=== PATIENT | female | born 1990 | race African-American/Black ===

== ENCOUNTER 2022-10-01 07:55 | Emergency (ER) | payer OTHER, SELFPAY ==
[2022-10-01 08:12] VITALS: BP 118/70; BP 130/80; PULSE 62; PULSE 81; RESP 18; TEMP 36.7; O2SAT 99; BMI 27.3
--- NOTE | 2022-10-01 08:26 | PC.NURSE ---
patient a/ox4 . oniel . heart rate regular at 77 beats per minute .lungs clear . breathing even and unlabored . skin pink warm and dry . patient is guarding left flank . reports waking up yesterday with sharp shooting pain that came and went that has increased and gotten worse since then . abdomen is soft . not tender . positive bowel sounds throughout . No trauma or injury noted to area . Patient ambulated with assistance to bathroom and gave urine sample . patient aware of plan of care .
--- NOTE | 2022-10-01 09:00 | ED_ITS ---
HPI - General Adult General Chief complaint: Abdominal Pain <Christian Day MD - Last Filed: 10/01/22 09:02> Stated complaint: R FLANK PAIN PER EMS <Christian Day MD - Last Filed: 10/01/22 09:02> Time Seen by Provider: 10/01/22 08:37 <Christian Day MD - Last Filed: 10/01/22 09:02> Source: patient <Katey SaucedaPABLITO - Last Filed: 10/01/22 11:57> Mode of arrival: EMS <Katey Molina PABLITO Sauceda - Last Filed: 10/01/22 11:57> Limitations: no limitations <Katey Molina PABLITO Sauceda - Last Filed: 10/01/22 11:57> History of Present Illness HPI narrative: Patient is a 42-year-old female who presents to emergency department for evaluation right wall upper back pain. Symptoms was yesterday. She states that she was attempting to reach forward to pick something up when she realized that she could not due to the pain she was experiencing. Pain has been constant since home, was noted worse with movement such as bending forward or movement of the arm. Has not tried any medications at home to help with this. Denies fevers, chills, dizziness weakness, chest pain no palpitations no shortness of breath, difficulty breathing, nausea, vomiting, abdominal pain, dysuria, urinary frequency, hematuria. Denies any past history of DVT/PE, personal she cancer use of oral contraceptives, smoking history <Katey Lernerjaun Sauceda CNP - Last Filed: 10/01/22 11:57> Related Data Home medications: Previous Rx's Medication Instructions Recorded ibuprofen 600 mg tablet 600 mg PO Q8H PRN fever or pain 10/01/22 #30 tabs <Christian Day MD - Last Filed: 10/01/22 09:02> Allergies/adverse reactions: Allergies Allergy/AdvReac Type Severity Reaction Status Date / Time No Known Allergies Allergy Verified 10/01/22 08:48 <Christian Day MD - Last Filed: 10/01/22 09:02> Review of Systems Review of Systems: Constitutional: No weight loss, fever, chills, weakness or fatigue. Skin: No rash or itching. Cardiovascular: No chest pain No palpitations or pedal edema. Respiratory: No shortness of breath, cough or sputum production. Gastrointestinal: No nausea, vomiting or diarrhea. No abdominal pain Genitourinary: No burning micturition. No urinary frequency or incontinence. Musculoskeletal: Back pain is noted in HPI Psychiatric: No depression or anxiety. <Katey Sauceda CNP - Last Filed: 10/01/22 11:57> Yes all other systems are reviewed and are negative <Katey Sauceda CNP - Last Filed: 10/01/22 11:57> [facility] Past Medical History Attestation statement: The following information was validated with the patient. <Katey Sauceda CNP - Last Filed: 10/01/22 11:57> Source: old records reviewed <Katey Sauceda CNP - Last Filed: 10/01/22 11:57> Social History Social History: Social History Alcohol intake: never Advance Directives: No Advance Directives Information Provided: No <Christian Day MD - Last Filed: 10/01/22 09:02> Physical Exam ED Vital Signs: Vital Signs - 24 hr 10/01/22 08:12 Temperature 98.1 F Pulse Rate 62 Respiratory Rate 18 Blood Pressure 118/70 Pulse Oximetry 99 Oxygen Delivery Method Room Air BMI result Body Mass Index 27.3 <Christian Day MD - Last Filed: 10/01/22 09:02> Vital Signs - 24 hr 10/01/22 08:12 Temperature 98.1 F Pulse Rate 62 Respiratory Rate 18 Blood Pressure 118/70 Pulse Oximetry 99 Oxygen Delivery Method Room Air BMI result Body Mass Index 27.3 <Katey Sauceda CNP - Last Filed: 10/01/22 11:57> Appearance: Alert.?Oriented to person, place and time. No acute distress.?Normal affect. Eyes: Pupils equal, round and reactive to light.? ENT: Pharynx normal.?? Neck: Normal inspection.? Neck supple.?? Back: Palpable tenderness to the right subscapular region ingestion. Pain level rashes or lesions at this site. Healed laceration scar around this area CVS: Heart sounds normal. Normal heart rate and rhythm.? Pulses normal.?? Respiratory: No respiratory distress.? Lung sounds clear to auscultation bilaterally?? Abdomen: Soft and non-tender. Normoactive bowel sounds. Skin: Skin warm and dry.? Normal skin color.? ?? Extremities: No lower extremity edema.? No calf ttp? Neuro: Moves all extremities spontaneously. Sensation intact bilaterally. CN II- XII intact. No focal neuro deficits. Ambulates with normal steady gait. <Katey Sauceda CNP - Last Filed: 10/01/22 11:57> Course Course Course Narrative: Patient 32-year-old female with no significant medical history presenting to emergency department for evaluation pain to the right lateral upper bowel and with comminution she is well appearing, vital signs stable. She is afebrile without tachypnea, hypoxia, or tachycardia. Has tenderness upon palpation and p ain is exacerbated with movement of the arm. PERC negative, unlikely PE. Low suspicion for pneumonia. Given region of pain, do not suspect renal colic. Rash lesions present currently, lower suspicion for zoster. Pain most consistent with muscular nature. Discussed plan for for discharge home, and said, ice/heat to the area, worrisome signs symptoms to return back to emergency department for questions were answered, patient is discharged in stable condition. <Katey Sauceda CNP - Last Filed: 10/01/22 11:57> Reevaluation(s) Reevaluation #1: I evaluated this patient and she has muscular pain with arm movement, there is an old scar to her back, no rash or zoster. Vitals are normal will dc on NSAIDs <Christian Day MD - Last Filed: 10/01/22 09:02> Time: 09:02 <Christian Day MD - Last Filed: 10/01/22 09:02> Discharge Plan Discharge Clinical Impression: Acute right-sided thoracic back pain <Christian Day MD - Last Filed: 10/01/22 09:02> Patient Disposition: Home, Self-Care <Christian Day MD - Last Filed: 10/01/22 09:02> Instructions: Thoracic Pain (ED) <Christian Day MD - Last Filed: 10/01/22 09:02> Additional Instructions: As we discussed, the pain to your back appears to be muscular in nature. Please be sure to rest over the next few days, avoid any heavy lifting or moving of objects. You may apply ice or heat to the area for 10-15 minutes 3-4 times daily. You can take ibuprofen 200 mg, 3 tablets (600mg) every 6-8 hours as needed for pain, in addition to Tylenol 500 mg, 2 tablets (1,000mg) every 4-6 hours as needed for pain, but not to exceed 3 doses daily (3,000mg).? Return to the emergency department with any new or worsening symptoms or concerns. This includes but is not limited to chest pain, shortness of breath, difficulty breathing, if you develop a rash, severe worsening pain, abdominal pain, nausea, vomiting, hematuria. Follow-up with your primary care provider as needed. <Christian Day MD - Last Filed: 10/01/22 09:02> Prescriptions: New ibuprofen 600 mg tablet 600 mg PO Q8H PRN (Reason: fever or pain) Qty: 30 0RF <Christian Day MD - Last Filed: 10/01/22 09:02> Interventions: ED Discharge Assessment Last Done: 10/01/22 10:14 <Christian Day MD - Last Filed: 10/01/22 09:02> Discharge Date/Time: 10/01/22 10:15 <Christian Day MD - Last Filed: 10/01/22 09:02>
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
--- OUTSIDE RECORDS SUMMARY | 2022-10-01 09:19 | XMS_ITS | Continuity of Care Document ---
:1990 Author Organization [facility] Address [address] [place] [address]- Care Team Providers Name Role Phone Not on Staff, PCP Primary Care Physician Unavailable Encounter [facility] Date(s): 02/16/21 - 03/24/21 [facility] [address] [place] [id number] Attending Physician: Jessica Goodrich MD Admitting Physician: Jessica Goodrich MD Referring Physician: Jessica Goodrich MD Allergies, Adverse Reactions, Alerts Substance Reaction Severity Status NKA Active
--- OUTSIDE RECORDS SUMMARY | 2022-10-01 09:19 | XMS_ITS | Continuity of Care Document ---
:1990 Author Organization [facility] Address [address] [place] [address]- Care Team Providers Name Role Phone Not on Staff, PCP Primary Care Physician Unavailable Encounter [facility] Date(s): 01/26/21 - 02/25/21 [facility] [address] [place] [id number] Attending Physician: Admtr, Lj Admitting Physician: Admtr, Lj Referring Physician: Admtr, Ar8 Allergies, Adverse Reactions, Alerts Substance Reaction Severity Status NKA Active
--- OUTSIDE RECORDS SUMMARY | 2022-10-01 09:19 | XMS_ITS | Continuity of Care Document ---
:1990 Author Organization [facility] Address [address] [place] [address]- Care Team Providers Name Role Phone Not on Staff, PCP Primary Care Physician Unavailable Encounter [facility] Date(s): 01/25/21 - 02/24/21 [facility] [address] [place] [id number] Allergies, Adverse Reactions, Alerts Substance Reaction Severity Status NKA Active
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
--- OUTSIDE RECORDS SUMMARY | 2022-10-01 09:19 | XMS_ITS | Continuity of Care Document ---
:1990 Author Organization [facility] Address [address] [place] [address]- Care Team Providers Name Role Phone Not on Staff, PCP Primary Care Physician Unavailable Encounter [facility] Date(s): 05/01/21 - 05/31/21 [facility] [address] [place] [id number] Referring Physician: Vane Kn[place] Allergies, Adverse Reactions, Alerts Substance Reaction Severity [...]
--- OUTSIDE RECORDS SUMMARY | 2022-10-01 09:19 | XMS_ITS | Continuity of Care Document ---
:1990 Author Organization [facility] Address [address] [place] [phone]- Care Team Providers Name Role Phone Not on Staff, PCP Primary Care Physician Unavailable Encounter [facility] Date(s): 02/28/21 - 04/02/[address] [id number] Attending Physician: Deepika Bowers DO Admitting Physician: Deepika Bowers DO Referring Physician: Deepika Bowers DO Allergies, Adverse Reactions, Alerts Substance Reaction Severity Status NKA Active
--- OUTSIDE RECORDS SUMMARY | 2022-10-01 09:19 | XMS_ITS | Continuity of Care Document ---
:1990 Author Organization [facility] Address [address] [place] [phone]- Care Team Providers Name Role Phone Not on Staff, PCP Primary Care Physician Unavailable Encounter [facility] Date(s): 01/17/21 - 02/16/21 [facility] [address] [place] [id number] Allergies, Adverse Reactions, Alerts Substance Reaction Severity Status NKA Active
--- OUTSIDE RECORDS SUMMARY | 2022-10-01 09:19 | XMS_ITS | Continuity of Care Document ---
:1990 Author Organization [facility] Address [address] [place] [address]- Care Team Providers Name Role Phone Not on Staff, PCP Primary Care Physician Unavailable Encounter [facility] [place] [place] Date(s): 01/26/21 - 03/03/21 [facility] [address] [place] [id number] Attending Physician: Jessica Goodrich MD Admitting Physician: Jessica Goodrich MD Referring Physician: Jessica Goodrich MD Allergies, Adverse Reactions, Alerts Substance Reaction Severity Status NKA Active
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
--- NOTE | 2022-10-01 10:11 | PC.NURSE ---
patient a/ox4 . went over discharge instructions as ordered by provider . patient to return to Ed if symptoms worsen . patient education on prescribed Motrin . patient to follow up with primary care . no questions at this time .
== END 2022-10-01 10:15 | disposition home or self-care (01) ==
PROVIDERS: Emergency Provider Emergency Medicine
DX: M54.6 Pain in thoracic spine (principal)
CPT/HCPCS: 99283; 99284

== ENCOUNTER 2022-10-01 10:46 | Emergency (ER) | payer OTHER, SELFPAY ==
--- NOTE | ~2022-10-01 | XR_ITS ---
EXAMINATION: XR CHEST CLINICAL INFORMATION: Right-sided pain COMPARISON: None TECHNIQUE: 2 views of the chest were obtained. FINDINGS: Lungs clear. No pleural effusions. Heart and pulmonary vessels are normal. XR/XR chest 2V IMPRESSION: No active disease.
[2022-10-01 10:51] VITALS: BP 131/81; PULSE 67; RESP 14; TEMP 36.8; O2SAT 99; BMI 32.0
--- NOTE | 2022-10-01 11:56 | ED_ITS ---
HPI - Back Pain/Injury General Chief Complaint: Back Pain/Injury Stated Complaint: PAIN INSIDE OF BODY Time Seen by Provider: 10/01/22 11:38 History of Present Illness HPI Narrative: Patient is a 42-year-old female who presents to emergency department for evaluation right lateral upper back pain.? She was seen here earlier today and discharged, reportedly at the time of discharge she had significant pain when getting into the car and she signed back in as she would like imaging, reporting that the pain is ?inside of my body not my back?. Symptoms onset was yesterday.? She states that she was attempting to reach forward to pick something up when she realized that she could not due to the pain she was experiencing.? Pain has been constant since home, was noted worse with movement such as bending forward or movement of the arm.? Has not tried any medications at home to help with this.? Denies fevers, chills, dizziness weakness, chest pain no palpitations no shortness of breath, difficulty breathing, nausea, vomiting, abdominal pain, dysuria, urinary frequency, hematuria.? Denies any past history of DVT/PE, personal she cancer use of oral contraceptives, smoking history Related Data Previous Rx's Medication Instructions Recorded ibuprofen 600 mg tablet 600 mg PO Q8H PRN fever or pain 10/01/22 #30 tabs Allergies Allergy/AdvReac Type Severity Reaction Status Date / Time No Known Allergies Allergy Verified 10/01/22 08:48 Review of Systems Review of Systems: Constitutional:?No weight loss, fever, chills, weakness or fatigue. Skin: No rash or itching. Cardiovascular: No chest pain No palpitations or pedal edema. Respiratory:?No shortness of breath, cough or sputum production. Gastrointestinal: No nausea, vomiting or diarrhea. No abdominal pain Genitourinary: No burning micturition. No urinary frequency or incontinence. Musculoskeletal:? Back pain is noted in HPI Psychiatric: No depression or anxiety. Yes all other systems are reviewed and are negative PMFSH Past Medical History Attestation statement: The following information was validated with the patient. Source: old records reviewed Social History Social History Alcohol intake: never Advance Directives: No Advance Directives Information Provided: No Physical Exam Vital Signs: Vital Signs: Last Vital Signs Temp 98.3 F 10/01/22 10:51 Pulse 67 10/01/22 10:51 Resp 14 10/01/22 10:51 BP 131/81 10/01/22 10:51 Pulse Ox 99 10/01/22 10:51 O2 Del Method 10/01/22 10:51 BMI result Body Mass Index 32.0 Appearance:?Alert.?Oriented? to person, place and time. No acute distress.?Normal affect. Eyes:?Pupils equal, round and reactive to light.? ENT: Pharynx normal.?? Neck:?Normal inspection.? Neck supple.?? Back:? Palpable tenderness to the right subscapular region ingestion.? Pain level rashes or lesions at this site.? Healed laceration scar around this area CVS:? Heart sounds normal. Normal heart rate and rhythm.? Pulses normal.?? Respiratory:?No respiratory distress.? Lung sounds clear to auscultation bilaterally?? Abdomen:?Soft and non-tender. Normoactive bowel sounds. Skin:?Skin warm and dry.? Normal skin color.? ?? Extremities:?No lower extremity edema.? No calf ttp? Neuro:?Moves all extremities spontaneously. Sensation intact bilaterally. CN II- XII intact. No focal neuro deficits. Ambulates with normal steady gait. Course Course Course Narrative: Patient 32-year-old female with no significant medical history presenting to emergency department for evaluation pain to the right lateral upper back pain. Upon re-evaluation she continues to be well appearing, vital signs stable.? She is afebrile without tachypnea, hypoxia, or tachycardia.? Abdominal examination is benign. Has tenderness upon palpation and pain is exacerbated with movement of the arm. PERC negative, no risk factor unlikely PE.? Low suspicion for pneumonia.? Given region of pain, do not suspect renal colic, biliary colic.?No Rash or lesions present currently, lower suspicion for zoster.? Still continue to believe pain to be consistent with muscular nature, although will obtain chest x-ray to exclude acute cardiopulmonary process.? Reviewed this case with ED attending Dr. Hawley or, who also evaluated the patient earlier today, no additional recommendations at this time. Patient received acetaminophen and ibuprofen while in the emergency department Reevaluation(s) Reevaluation #1: Chest x-ray reveals no acute cardiopulmonary process. Discussed plan for for discharge home, NSAID, ice/heat to the area, worrisome signs symptoms to return back to emergency department for questions were answered, patient is discharged in stable condition. Time: 12:02 Medications Administered Discontinued Medications Generic Name Dose Route Start Last Admin Trade Name Thony PRN Reason Stop Dose Admin Acetaminophen 975 mg 10/01/22 11:42 10/01/22 13:30 Acetaminophen 325 Mg Tablet PO 10/01/22 11:43 975 mg ONCE ONE Administration Ibuprofen 600 mg 10/01/22 11:42 10/01/22 13:29 Ibuprofen 600 Mg Tablet PO 10/01/22 11:43 600 mg ONCE ONE Administration MDM - Back Pain/Injury Medical Records Attestation: I reviewed the patient's medical records. Imaging Data Chest x-ray: Radiologist's impression: FINDINGS: Lungs clear. No pleural effusions. Heart and pulmonary vessels are normal. XR/XR chest 2V IMPRESSION: No active disease. Discharge Plan Discharge Clinical Impression: Acute right-sided thoracic back pain Patient Disposition: Home, Self-Care Additional Instructions: The chest x-ray that we obtained today does not reveal any abnormal findings. Your lungs appear normal. As discussed earlier, the pain that you are describing seems to be most consistent with a muscular nature. Please be sure to rest over the next few days, avoid any heavy lifting or moving of objects.? You may apply ice or heat to the area for 10-15 minutes 3-4 times daily. You can take ibuprofen 200 mg, 3 tablets (600mg) every 6-8 hours as needed for pain, in addition to Tylenol 500 mg, 2 tablets (1,000mg) every 4-6 hours as needed for pain, but not to exceed 3 doses daily (3,000mg).? Return to the emergency department with any new or worsening symptoms or concerns.? This includes but is not limited to chest pain, shortness of breath, difficulty breathing, if you develop a rash, severe worsening pain, abdominal pain, nausea, vomiting, hematuria. Follow-up with your primary care provider within the next week for continued symptoms. Prescriptions: No Action ibuprofen 600 mg tablet 600 mg PO Q8H PRN (Reason: fever or pain) Qty: 30 0RF Interventions: ED Discharge Assessment Last Done: 10/01/22 14:13 Discharge Date/Time: 10/01/22 14:14
[2022-10-01] MEDS: Ibuprofen 600 MG TABLET PO (13:29)
[2022-10-01] MEDS: Acetaminophen 325 MG TABLET 975 MG PO (13:30)
--- NOTE | 2022-10-01 14:13 | PC.NURSE ---
patient a/ox4 . went over discharge instructions as ordered by provider . patient says back pain is improved after being medicated . patient has no questions at this time .
== END 2022-10-01 14:14 | disposition home or self-care (01) ==
PROVIDERS: Emergency Provider Emergency Medicine
DX: M54.6 Pain in thoracic spine (principal)
CPT/HCPCS: 71046; 99283